=== PATIENT | female | born 1970 | race Caucasian/White ===

== ENCOUNTER 2020-05-22 18:18 | Emergency (ER) | payer SELFPAY ==
[2020-05-22 18:32] VITALS: BP 136/86; PULSE 84; RESP 25; TEMP 36.7; O2SAT 99; BMI 26.2
[2020-05-22 18:43] VITALS: BP 125/73; PULSE 87; RESP 16; O2SAT 99
--- NOTE | 2020-05-22 18:45 | XR_ITS ---
WS: [id number] Exam: XR chest 1V portable [id number] Date/Time of Exam: 05/22/2020 6:45 PM Reason For Exam: sob Findings: The lungs are clear and fully expanded. Costophrenic angles are sharp. No infiltrates. Bronchovascula r relief appears normal. Cardiac silhouette is unremarkable. Bony elements are intact. XR/XR chest 1V portable [id number] IMPRESSION: Unremarkable chest radiograph.
--- NOTE | 2020-05-22 18:45 | ECG_ITS ---
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 Measurements Intervals Davis Rate: 84 P: 62 IA: 133 QRS: 63 QRSD: 92 T: 49 QT: 346 QTc: 409 Interpretive Statements SINUS RHYTHM WITH SINUS ARRHYTHMIA No previous ECG available for comparison Electronically Signed On 05-23-2020 5:53:46 HARNESS FITTER by Sally Aguilar M.D. [id number]
--- NOTE | 2020-05-22 19:05 | W.ED.SOB ---
HPI - SOB/Dyspnea General: Chief Complaint: Shortness of Breath/Dyspnea Stated Complaint: difficulty breathing Time Seen by Provider: 05/22/20 18:34 Source: patient Mode of arrival: ambulatory Limitations: no limitations History of Present Illness: HPI Narrative: 49-year-old female states she has a history of anxiety attacks states that roughly 2 hours ago started having very sharp chest pain that started all of a sudden. States she had palpitations along with shortness of breath. She states that it is improved since the onset and is now a 6 out of 10. She does appear anxious. She denies any vomiting or diarrhea. Denies any worsening improving factors. Associated symptoms: Reports chest pain; Deny abdominal pain, fever(s), nausea or vomiting Review of Systems Const: Denies: fever(s), chills, body aches or change in appetite Eyes: Denies: blurry vision or eye discomfort ENMT: Denies: throat pain or dental pain Card: Reports: chest pain Resp: Reports: dyspnea GI: Denies: abdominal pain, nausea, vomiting or diarrhea : Denies: dysuria Musc: Denies: neck pain or back pain Skin/Breast: Denies: rash Neuro: Denies: headache(s) Psych: Reports: anxiety Carlos Enrique/Lymph: Denies: easy bruising All/Imm: Denies: urticaria PFSH ED PFSH: Social History (Updated 05/21/19 @ 10:11 by Mere Boles LPN) Smoking and tobacco status: current every day smoker Alcohol intake: never Physical Exam Const: COMMON NORMALS: no acute distress, patient oriented x3 and healthy appearing HENMT: COMMON NORMALS: normocephalic and atraumatic HEAD & SCALP: normocephalic and atraumatic Eye: COMMON NORMALS: Equal, round and reactive pupils present and EOMs intact bilaterally PUPIL: Yes Equal, round and reactive pupils present Neck/C-Spine: COMMON NORMALS: full ROM and supple Chest: COMMONS NORMALS: normal inspection of the chest and normal palpation of entire chest wall Resp: COMMON NORMALS: normal respiratory effort, No retractions, No use of accessory muscles and clear to auscultation bilaterally AUSCULTATION: clear to auscultation bilaterally Cardio: COMMON NORMALS: regular rate, regular rhythm and No murmurs present (Cardio) RATE: regular rate RHYTHM: regular rhythm GI: COMMON NORMALS: Normal to inspection, nondistended, normoactive bowel sounds present, Soft to palpation, non-tender and no masses PALPATION: Yes Soft to palpation Extremity: COMMON NORMALS: normal to inspection and full ROM Neuro: COMMON NORMALS: patient oriented x3, moves all extremities and no focal motor deficits Psych: COMMON NORMALS: mental status grossly normal, Normal thought process present and cooperative MOOD & AFFECT: Yes anxious THOUGHT PROCESS: Normal thought process present Skin: COMMON NORMALS: no rashes or lesions noted and no wounds GENERAL SKIN EXAM: no rashes or lesions noted Course Vital Signs: Vital signs: Vital Signs Temperature 98.1 F 05/22/20 18:32 Pulse Rate 87 05/22/20 18:43 Respiratory Rate 16 05/22/20 18:43 Blood Pressure 125/73 05/22/20 18:43 Pulse Oximetry 99 05/22/20 18:43 MDM - SOB/Dyspnea MDM Narrative: Medical decision making narrative: Patient presents with chest pain is likely due to anxiety. Her patient refused any blood draw or needle sticks here she is a former IV drug user and after 2 attempts the nurse was unable to get any blood work and she refused any other attempts after that. I did give her IM Ativan. Her EKG and x-ray here are negative. I was in another room doing a procedure done at that time the nurse went to check on her and she had eloped. I was unable to speak to her before she had left. Imaging Data^: CXR: Attestation: I personally reviewed and interpreted this imaging study as follows: My impression: no acute abnormality EKG Data^: EKG 1: Attestation: I personally reviewed and interpreted this EKG as follows: EKG Interpretation Date: 05/22/20 EKG interpretation time: 18:30 Interpretation: nsr hr [address] or t wave abnormalities qrs 92 qtc 386 Discharge Plan Discharge Patient Disposition: Home Clinical Impression: Chest pain Condition: Stable Prescriptions: No Action naproxen sodium 220 mg Tablet 660 mg PO PRN RF: 0 Discharge Orders: Discharge ED (Routine); Ordered 05/22/20 Ordered By: Nu Ortega Referrals: Mikhail Garcia DO [Primary Care Provider] - Patient Instructions: Opioid Safety Coding Level of Care Code ED Concrete Block Mason for Chg Fwd Exam Comprehensive
[2020-05-22] MEDS: LORazepam 2 mg/mL INJ 1 mL IM (19:15)
--- NOTE | 2020-05-22 19:44 | PC.NURSE ---
Upon entering room patient was not in room and not in the lobby. Patient eloped and Dr Ortega was notified. 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
== END 2020-05-22 19:49 | disposition home or self-care (01) ==
PROVIDERS: Emergency Provider Emergency Medicine; PCP Electrodiagnostic Medicine
DX: R07.9 Chest pain, unspecified (principal); F17.210 Nicotine dependence, cigarettes, uncomplicated
CPT/HCPCS: 71045; 93005; 96372; 99283; J2060

== ENCOUNTER 2021-08-07 08:38 | Emergency (ER) | payer SELFPAY ==
[2021-08-07 09:05] VITALS: BP 142/79; PULSE 118; RESP 25; O2SAT 96; BMI 32.8
--- NOTE | 2021-08-07 09:10 | XR_ITS ---
WS: [id number] TIBIA-FIBULA 2 VIEWS HISTORY: dog bite COMPARISON: None available. No fracture, dislocation or joint abnormality. Extensive soft tissue injury along the posterior calf. XR/XR tibia fibula RT 2V [id number] IMPRESSION: 1. Extensive soft tissue injury along the posterior upper calf. 2. No bone abnormality.
--- NOTE | 2021-08-07 09:14 | W.ED.ANIMALB ---
Documented by User: SERA Rogers 08/07/21 11:32 HPI - Animal Bite General: Chief Complaint: Animal Bite Stated Complaint: bit by a dog Time Seen by Provider: 08/07/21 08:39 Source: patient and other (friend) Mode of arrival: wheelchair Limitations: no limitations History of Present Illness: Patient is a 51-year-old female presents to ED today for evaluation following a dog bite to her right lower leg. Patient is accompanied with her friend who states that she was watching the dog/pitbull for another individual and states the dog was not used to her bit the posterior aspect of her right leg. Immunization status is unknown but the animal was a household pet and appeared well. Report later from friend states dog is UTD on rabies shots. Animal can continue to be quarantined for the next 7 to 10 days. Patient's tetanus is not up-to-date. Patient states she doesn't know if police report has been filed. Patient is extremely anxious upon arrival. MD complaint: animal bite Onset (ago): hour(s) Animal: dog Description of animal: household pet, immunizations unknown and appeared well Mechanism: bite Location - Extremities: Right: lower leg Associated symptoms: Reports no associated symptoms; Deny chills or fever(s) Related Data: Patient tetanus UTD: No Review of Systems Const: Denies: fever(s), chills, body aches, fatigue or malaise Card: Denies: chest pain Resp: Denies: dyspnea GI: Denies: abdominal pain Musc: Reports: extremity pain; Denies: neck pain, back pain, joint pain or joint swelling Skin/Breast: Reports: other (dog bite to R LE) Neuro: Denies: numbness in extremities, weakness in extremities or sensory changes [facility] ED PFSH: Social History Smoking and tobacco status: current every day smoker Alcohol intake: never Physical Exam Const: COMMON NORMALS: patient oriented x3 and alert GENERAL APPEARANCE: cooperative and anxious ORIENTATION/CONSCIOUSNESS: Yes awake, Yes oriented to person, Yes oriented to place and Yes oriented to time OTHER: patient is extremely anxious and hyperventilating HENMT: COMMON NORMALS: normocephalic and atraumatic HEAD & SCALP: normocephalic and atraumatic Resp: COMMON NORMALS: normal respiratory effort and clear to auscultation bilaterally AUSCULTATION: clear to auscultation bilaterally Cardio: COMMON NORMALS: regular rhythm RATE: tachycardic RHYTHM: regular rhythm Extremity: COMMON NORMALS: full ROM and capillary refill normal GENERAL: Yes normal exam except as noted RIGHT LOWER EXTREMITY: Yes lower leg (see image description) Right lower leg: Yes neurovascular exam (normal) Legs Back: 1. large approximately 7x7cm circular dog bite to posterior aspect of R lower leg; bite does not seem to extend past subcutaneous/adipose tissue; there seems to be tissue loss as there is only a small skin flap present-patient does not tolerate much of an exam at this time secondary to pain/anxiety; bleeding minimal/controlled Neuro: COMMON NORMALS: patient oriented x3, moves all extremities, no focal motor deficits and no sensory deficits noted SENSORIUM/ORIENTATION: Yes alert, Yes oriented to person, Yes oriented to place and Yes oriented to time Procedures Laceration Laceration 1: Site: lower extremity Side (If applicable): right Size (cm): 7 Description: irregular and other (circular/skin flap) Local Anesthetic: lidocaine 1% Amount of anesthesia used (mL): 10 Pre-repair: wound explored, irrigated extensively and deep structures intact Size (cm): 4-0 Number of sutures: 4 Technique: simple, interrupted (what remained of skin flap was tacked down with vicryl; one small venous bleed was tied off) Course ED course: Patient's care overall has been delayed/prolonged and complicated by her extreme anxiety and pain tolerance. Eventually I was able to get her pain/anxiety medications which helped slightly. Vital Signs: Vital signs: Vital Signs Pulse Rate 97 08/07/21 13:08 Respiratory Rate 16 08/07/21 13:08 Blood Pressure 168/111 08/07/21 13:08 Pulse Oximetry 99 08/07/21 13:08 MDM - Animal Bite Medical Decision Making Patient with a fairly large/extensive circular dog bite to the posterior proximal aspect of her right lower leg. Wound does not extend past subcutaneous/adipose tissue. XR does not show any bony involvement or foreign bodies. Wound was copiously irrigated. She had one small skin flap present but it did not provide much coverage to open surfaces/wound. Flap did appear viable so it was tacked down over wound to be used later if needed. Her tetanus was updated. She was given IV abx and will be placed on oral abx at home. She has an allergy to penicillins so other appropriate coverage will be initiated. Patient will be set up with wound care as she has a large deficit that is going to require former hand management. Case management is also working on trying to get her a referral to plastics in [place] for evaluation for need for skin graft. Dr. Wells also evaluated bite and agrees with plan/management for patient. Lab Data Radiology Impressions Tibia/Fibula X-Ray 08/07/21 09:10 IMPRESSION: 1. Extensive soft tissue injury along the posterior upper calf. 2. No bone abnormality. Discharge Plan Discharge Patient Disposition: Home Clinical Impression: Dog bite Qualifiers: Encounter type: initial encounter Qualified Code(s): W54.0XXA - Bitten by dog, initial encounter Condition: Stable Prescriptions: New metronidazole 500 mg tablet 500 mg PO BID 7 Days Qty: 14 0RF doxycycline monohydrate 100 mg capsule 100 mg PO Q12H 7 Days Qty: 14 0RF hydrocodone-acetaminophen 5-325 mg tablet 1 tab PO Q4H PRN (Reason: pain) Qty: 20 0RF No Action naproxen sodium 220 mg Tablet 660 mg PO PRN 0RF Discharge Orders: Discharge ED (Routine); Ordered 08/07/21 Ordered By: Cony Durham Referrals: Mikhail Garcia DO [Primary Care Provider] - Patient Instructions: Animal Bite (ED) Activity Restrictions/Additional Instructions: It is imperative that you fill antibiotics and start them immediately. You need to keep wound cleansed and dressed at home. This management is working on your wound care referral-it is extremely important that you make these appointments. We are also working on getting you set up with a plastic surgery consultation in [place] for evaluation for the need of a skin graft. You need to monitor for signs of infection to your wound such as redness, red streaking up your leg, swelling, increased pain, drainage, or fevers greater than 100.4. You need to monitor leg for extreme swelling, tightness, coolness/paleness to the extremity, numbness/tingling/loss of sensation, or any other concerns you may have. Coding Level of Care Code ED Environmental Tech for Chg Fwd Exam Detailed Documented by User: Don Wells DO 08/08/21 15:46 HPI - Animal Bite General: Chief Complaint: Animal Bite Stated Complaint: bit by a dog Time Seen by Provider: 08/07/21 08:39 PFSH ED PFSH: Social History Smoking and tobacco status: current every day smoker Alcohol intake: never Physical Exam Extremity: Legs Back: 1. large approximately 7x7cm circular dog bite to posterior aspect of R lower leg; bite does not seem to extend past subcutaneous/adipose tissue; there seems to be tissue loss as there is only a small skin flap present-patient does not tolerate much of an exam at this time secondary to pain/anxiety; bleeding minimal/controlled Course Vital Signs: Vital signs: Vital Signs Pulse Rate 97 08/07/21 13:08 Respiratory Rate 16 08/07/21 13:08 Blood Pressure 168/111 08/07/21 13:08 Pulse Oximetry 99 08/07/21 13:08 MDM - Animal Bite Medical Decision Making Patient with a fairly large/extensive circular dog bite to the posterior proximal aspect of her right lower leg. Wound does not extend past subcutaneous/adipose tissue. XR does not show any bony involvement or foreign bodies. Wound was copiously irrigated. She had one small skin flap present but it did not provide much coverage to open surfaces/wound. Flap did appear viable so it was tacked down over wound to be used later if needed. Her tetanus was updated. She was given IV abx and will be placed on oral abx at home. She has an allergy to penicillins so other appropriate coverage will be initiated. Patient will be set up with wound care as she has a large deficit that is going to require fdc management. Case management is also working on trying to get her a referral to plastics in [place] for evaluation for need for skin graft. Dr. Wells also evaluated bite and agrees with plan/management for patient. Chart reviewed and patient discussed with midlevel. Agree with assessment and plan. Seen and evaluated the patient in conjunction with Ms. Durham agree with her documentation as well. Lab Data Radiology Impressions Tibia/Fibula X-Ray 08/07/21 09:10
[2021-08-07] MEDS: morphine 4 mg/mL SDV 1 mL IVP (10:04)
[2021-08-07] MEDS: LORazepam 2 mg/mL INJ 1 mL 1 MG IVP (10:04)
[2021-08-07] MEDS: cefTRIAXone 1,000 MG in sodium chloride 0.9% (plus) 50 ML 100 MG IV (10:06)
[2021-08-07] MEDS: tetanus-diphtheria tox (adult) 0.5 mL SDV IM (10:13)
[2021-08-07 10:17] VITALS: BP 142/92; PULSE 88; RESP 18; O2SAT 98
[2021-08-07] MEDS: metroNIDAZOLE IV 500 MG/100 ML PREMIX 100 MG IV (11:08)
[2021-08-07 11:21] VITALS: BP 168/111; PULSE 97; RESP 16; O2SAT 99
--- NOTE | 2021-08-07 11:59 | DCPLANNER ---
Addendum entered by Chelsea Crawford 08/16/21 18:53: Patient attended appointment scheduled with Wound Care. Addendum entered by Chelsea Crawford 08/09/21 19:07: Patient has a follow up appointment scheduled for Tuesday, August 10, 2021 at 2:[address] Morales at [facility] Care. Clinic will call patient with appointment information. Addendum entered by Chelsea Crawford 08/07/21 18:03: consulting solution manager was also asked to refer patient to [facility], protective services case worker called [facility] and got a fax number and faxed patients information to the clinic. Patients information will be reviewed and clinic will call patient with appointment information. Original Note: consulting solution manager had message to schedule a follow up appointment for patient with Wound Care. consulting solution manager sent patients information to the front office staff at wound care. Patients information will be printed and reviewed. Clinic will call patient with appointment information.
[2021-08-07 13:08] VITALS: BP 168/111; PULSE 97; RESP 16; O2SAT 99
== END 2021-08-07 13:09 | disposition home or self-care (01) ==
PROVIDERS: Emergency Provider Physician Assistant; PCP Electrodiagnostic Medicine
DX: S81.851A Open bite, right lower leg, initial encounter (principal); F17.200 Nicotine dependence, unspecified, uncomplicated; W54.0XXA Bitten by dog, initial encounter; Z23 Encounter for immunization; Z88.0 Allergy status to penicillin
CPT/HCPCS: 12032; 73590; 90471; 90714; 96365; 96367; 96375; 99284; J0696; J2060; J2270; S0030

== ENCOUNTER → 2023-10-12 14:17 | Outpatient (BNVA) | payer BC, MEDICAID, SELFPAY | PROVIDERS: PCP Electrodiagnostic Medicine; Visit Provider Emergency Medicine | DX: N10 Acute pyelonephritis (principal); R39.9 Unspecified symptoms and signs involving the genitourinary system | CPT/HCPCS: 81000 ==

== ENCOUNTER → 2023-11-05 12:57 | Outpatient (BNVA) | payer BC, MEDICAID, SELFPAY | PROVIDERS: PCP Electrodiagnostic Medicine; Visit Provider Nurse Practitioner Family | DX: B19.20 Unspecified viral hepatitis C without hepatic coma (principal); E66.9 Obesity, unspecified; R60.0 Localized edema; Z68.36 Body mass index [BMI] 36.0-36.9, adult | CPT/HCPCS: 80053; 80061; 83880; 84443; 85025 ==

== ENCOUNTER 2024-01-12 20:42 | Emergency (ER) | payer BC, MEDICAID, SELFPAY ==
[2024-01-12 20:43] VITALS: BP 132/85; PULSE 106; RESP 18; TEMP 36.7; O2SAT 93; BMI 35.7
--- NOTE | 2024-01-12 21:17 | XRR_ITS ---
PROCEDURE INFORMATION: Exam: XR Complete Acute Abdomen Series Including Chest Exam date and time: 01/12/2024 9:34 PM Age: 53 years old Clinical indication: Abdominal pain; Generalized TECHNIQUE: Imaging protocol: Radiologic exam. Complete acute abdomen series, including 2 or more views of the abdomen and a single view chest. COMPARISON: CR XR chest 1V portable [id number] 05/22/2020 7:12 PM FINDINGS: Lungs: Calcified granuloma in the right lung. Mild atelectasis in the left lung base. The lungs are otherwise clear. Pleural spaces: Normal. No pleural effusions. No pneumothorax. Heart/Mediastinum: Normal. No cardiomegaly. Gastrointestinal tract: Multiple loops of gas distended small bowel measuring up to 3.8 cm diameter with non differential air-fluid levels. Scattered gas and stool in the colon to the rectum. Intraperitoneal space: No pneumoperitoneum. Bones/joints: Normal. No acute fracture. Soft tissues: Mesh anchors in the inguinal regions. XR/XR acute abdomen series [id number] IMPRESSION: 1. Gas distended small bowel could represent ileus, enteritis, or partial distal small bowel obstruction. 2. No acute pulmonary findings.
--- NOTE | 2024-01-12 21:39 | W.ED.ABDPA2 ---
HPI - Abdominal Pain General: Chief Complaint: Abdominal Pain Stated Complaint: abdominal pain Time Seen by Provider: 01/12/24 21:17 History of Present Illness: 53-year-old female who presents emergency room with abdominal pain. She says she has been constipated. No nausea or vomiting. No diarrhea. Pain is been present for 2 days. Upper abdomen bilaterally. No fevers. No chest pain. No shortness of breath. No altered mental status Related Data Home Medications Medication Instructions Recorded Confirmed No Known Home Medications 12/29/23 12/29/23 Allergies Allergy/AdvReac Type Severity Reaction Status Date / Time cyclobenzaprine Allergy makes tense Verified 01/12/24 20:49 [From Flexeril] Penicillins Allergy rash Verified 01/12/24 20:49 Review of Systems Narrative: Constitutional symptoms: Negative except as documented in HPI. Skin symptoms: Negative except as documented in HPI. Eye symptoms: Negative except as documented in HPI. ENMT symptoms: Negative except as documented in HPI. Respiratory symptoms: Negative except as documented in HPI. Cardiovascular symptoms: Negative except as documented in HPI. Gastrointestinal symptoms: Negative except as documented in HPI. Genitourinary symptoms: Negative except as documented in HPI. Musculoskeletal symptoms: Negative except as documented in HPI. Neurologic symptoms: Negative except as documented in HPI. Psychiatric symptoms: Negative except as documented in HPI. Endocrine symptoms: Negative except as documented in HPI. [facility] ED PFSH: Medical History (Updated 01/12/24 @ 22:48 by Clarissa Plaza MD) Bilateral leg edema Obesity Hepatitis C Family History Mother Cancer breast Father Cancer kidney Sister IBS (irritable bowel syndrome) Social History (Updated 11/05/23 @ 12:28 by Binta Arevalo) Smoking and tobacco/nicotine status: current every day tobacco/nicotine user cigarettes Packs smoked per day: 0.25 Alcohol intake: current Alcohol intake frequency: 3 or more drinks per day Substance/Drug Use: current Substance/Drug use frequency: few times a week Other substance/drug use details: for pain control in her legs Adopted: No Lives independently: Yes Marital status: Single service: No Current occupational status: employed Current gender identity: Female Special pascale needs: No Agree to transfusion: Yes Physical Exam Narrative: EXAM NARRATIVE: General: Alert, no acute distress. Skin: Warm, dry. Head: Normocephalic, atraumatic. Neck: Supple, trachea midline. Eye: Extraocular movements are intact. Ears, nose, mouth and throat: mucosa moist. Cardiovascular: Regular, Normal peripheral perfusion. Respiratory: Lungs are clear to auscultation, respirations are non-labored, breath sounds are equal, Symmetrical chest wall expansion. Gastrointestinal: Soft, mild diffuse upper abdominal pain, Non distended Musculoskeletal: Normal ROM, no deformity. Neurological: Alert and oriented, No focal neurological deficit observed. Psychiatric: Cooperative, appropriate mood & affect. Course Vital Signs: Vital signs: Vital Signs Temperature 98.1 F 01/12/24 20:43 Pulse Rate 105 H 01/12/24 21:57 Respiratory Rate 18 01/12/24 21:57 Blood Pressure 132/85 01/12/24 20:43 Pulse Oximetry 95 01/12/24 21:57 Oxygen Delivery Me thod Room Air 01/12/24 21:57 MDM - Abdominal Pain Medical Decision Making X-ray was ordered but not read by radiology yet. Patient refused an IV or lab work. I was waiting for radiology to read the x-ray and she decided she wanted to go home AMA. XR interpretation done by ED provider, pending radiology final review Discharge Plan Discharge Patient Disposition: Left Against Medical Advice Clinical Impression: Abdominal pain Condition: Stable Prescriptions: No Action No Known Home Medications Patient Instructions: Abdominal Pain (ED) Activity Restrictions/Additional Instructions: Thank you for choosing [facility] for your healthcare needs today. Please realize this is an emergency room and that we are providing you with a medical screening exam and this may not be complete and all inclusive of all the testing and or work up that you may need to determine your ailment or severity of your illness. You have been screened and evaluated and felt safe for discharge. Health conditions do change or evolve sometimes and as such it is important that you follow up with your Primary Doctor to be re checked, 3-5 days is a general good time frame for follow up. You are always welcome to return to the ED for re assessment if your symptoms are worsening or you have new concerns Coding Level of Care Code ED Youth Associate for Shani Edwards
[2024-01-12 21:57] VITALS: PULSE 105; RESP 18; O2SAT 95
--- NOTE | 2024-01-12 22:00 | PC.NURSE ---
attempted to start a IV in the pts left hand. pt pulled her hand away and said that she would be sick if i poked in that hand. pt requested that I start the IV in her right arm. I used the US and when I attempted to stick the pt pulled her arm away again and said nope, nope and I got to get out of here . ED physician informed of the pt refusal at this time
== END 2024-01-12 22:48 | disposition left against medical advice (07) ==
PROVIDERS: Emergency Provider Emergency Medicine
DX: R10.9 Unspecified abdominal pain (principal); Z86.19 Personal history of other infectious and parasitic diseases; F17.210 Nicotine dependence, cigarettes, uncomplicated; Z53.29 Procedure and treatment not carried out because of patient's decision for other reasons
CPT/HCPCS: 74022; 99283

== ENCOUNTER → 2024-02-03 12:12 | Outpatient (BNVA) | payer BC, MEDICAID, SELFPAY | PROVIDERS: Visit Provider Family Medicine | DX: J98.4 Other disorders of lung (principal); R05.9 Cough, unspecified | CPT/HCPCS: 71046 ==